=== PATIENT | female | born 1970 | race Caucasian/White ===

== ENCOUNTER 2023-10-13 09:06 | Outpatient (REF) | payer OTHER, SELFPAY ==
--- NOTE | 2023-10-13 09:14 | EMG_ITS ---
Bilateral median and ulnar motor and sensory studies were performed. Bilateral radial sensory studies were performed and paraspinal muscles were tested with a needle. IMPRESSION: Mild to moderate right median neuropathy across carpal tunnel. No abnormality was noted on the left side. MD EVI Ramos/LINETTE / [id number]
== END 2023-10-13 09:07 | disposition home or self-care (01) ==
LOC: HO.NEURO 09:06
PROVIDERS: PCP Internal Medicine; Visit Provider Internal Medicine
DX: G56.03 Carpal tunnel syndrome, bilateral upper limbs (principal); R20.0 Anesthesia of skin; R20.2 Paresthesia of skin
CPT/HCPCS: 95886; 95911